=== PATIENT | female | born 1970 | race Caucasian/White ===

== ENCOUNTER 2021-03-29 12:08 | Emergency (ER) | payer BC, SELFPAY ==
--- NOTE | ~2021-03-29 | CT_ITS ---
EXAMINATION: CT brain wo con EXAM DATE: 03/29/2021 12:42 INDICATION: Head injury., Tree fell on head with laceration. TECHNIQUE: Spiral CT of the head was performed without contrast. Axial, coronal and sagittal images were reviewed. The dose-length product (DLP) for this examination was 529.67 mGy-cm. The exposure w as tailored according to patient size, and iterative reconstruction (ASIR) was used as additional dos e reduction technique. There is no prior study for comparison. FINDINGS: There is no acute intraparenchymal hemorrhage. No evidence of intraparenchymal brain mass lesion. No evidence of acute infarction. There is no mass effect or midline shift. The ventricles are normal in size. There are no extra-axial collections. There are no acute calvarial fractures. T he orbits are unremarkable. Left vertex scalp laceration and contusion. The visualized sinuses and m astoid air cells are well aerated. IMPRESSION: 1. No acute intracranial findings. 2. Left vertex scalp laceration an contusion. Reviewed, dictated and finalized at location B. 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
--- NOTE | ~2021-03-29 | XR_ITS ---
EXAMINATION: XR femur LT min 2V EXAM DATE: 03/29/2021 12:55 INDICATION: Tree Fell On Pt Today, Left Lat Mid Thigh Pain . TECHNIQUE: Left femur frontal and lateral projections of the proximal aspect, frontal and lateral pro jections of the lower aspect for review. There is no prior study for comparison. FINDINGS: Mottled appearance to the soft tissue inferolateral to the left greater trochanter, could be soft tissue hematoma. There are no acute fractures identified. There is moderate hip and knee blanquita stefany osteoarthritis. No radiopaque foreign bodies identified. IMPRESSION: 1. No left femur fracture. 2. Probable soft tissue hematoma. Reviewed, dictated and finalized at location B. 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
--- NOTE | ~2021-03-29 | CT_ITS ---
EXAMINATION: CT cervical spine wo con EXAM DATE: 03/29/2021 12:42 INDICATION: Head Injury Head Vs Falling Tree,Lac On Top Of Head. TECHNIQUE: Spiral CT of the cervical spine was performed without contrast. Axial images were reviewe d. Coronal and sagittal reformatted images cervical spine were also reviewed. The dose-length produc t (DLP) for this examination was 526.80 mGy-cm. The exposure was tailored according to patient size (auto mA exposure control), and iterative reconstruction (ASIR) was used as additional dose reduction technique. There is no prior study for comparison. FINDINGS: There is no evidence of acute cervical fracture. The odontoid process is intact. Pre-dens space is normal. Prevertebral soft tissue is normal. There are no soft tissue abnormalities identi fied. There is no disc space widening or traumatic vertebral body subluxation suspected. Mild to mo derate cervical spondylosis. A detailed level by level evaluation of spondylosis can be added as add endum if requested. IMPRESSION: No acute cervical fracture. Reviewed, dictated and finalized at location B. E RUNNER IMPRESSION: No acute cervical fracture.
--- NOTE | ~2021-03-29 | XR_ITS ---
EXAMINATION: XR hand LT min 3V EXAM DATE: 03/29/2021 12:56 INDICATION: Tree Fell On Pt, Swelling And Bruising To 3rd And 4th MCP. TECHNIQUE: Left hand frontal, lateral and oblique projections obtained and reviewed. There is no blanquita or study for comparison. FINDINGS: Left metacarpal bones are unremarkable. There are no acute fractures or dislocations ident ified. There is no subcutaneous gas. There is soft tissue swelling over the wrist and metacarpal hea ds. There are no radiopaque foreign bodies. IMPRESSION: 1. XR hand LT min 3V exam without acute osseous findings. 2. Soft tissue swelling. Reviewed, dictated and finalized at location B. 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
[2021-03-29 12:08] VITALS: BP 158/95; PULSE 107; RESP 16; TEMP 36.6; O2SAT 96
--- NOTE | 2021-03-29 12:14 | ED.HEATRA ---
HPI - Head Injury General Chief complaint: Head Injury Stated complaint: tree fell on her Time Seen by Provider: 03/29/21 12:14 Source: patient Mode of arrival: ambulatory Limitations: no limitations History of Present Illness HPI Narrative: 50-year-old female presented to the ER after a tree limb fell on --left parieto-occipital region-- she sustained an 8.5 cm full-thickness scalp laceration with profuse bleeding -- abrasions of both hands over the dorsal MP joints and left wrist -- left thigh pain and swelling no loss of consciousness. No headache. No nausea or vomiting. No focal deficits. MD Complaint: head injury and head pain Onset (ago): hour(s) ( 1 hour ago) Arrival Conditions: other ( C-spine immobilization initiated in the ER) Mechanism of Injury: other ( blunt trauma from a falling tree limb) Place: work Loss of Consciousness: no Location of injury: parietal and occipital Severity: moderate Severity scale (1-10): 4 Quality: dull Radiation: none Other Injuries: upper extremity ( multiple abrasions on both hands and left wrist) Associated symptoms: denies other symptoms Related Data Allergies Allergy/AdvReac Type Severity Reaction Status Date / Time No Known Allergies Allergy Verified 03/29/21 12:15 Review of Systems Review of Systems: All systems reviewed & are unremarkable except as noted in HPI and below Constitutional: Constitutional: Reports as per HPI and Reports no additional constitutional complaints Eyes: Eyes: Reports as per HPI and Reports no additional eye complaints ENT: Reports system reviewed and no additional complaints, except as documented Cardiovascular: Cardiovascular: Reports as per HPI and Reports no additional cardiovascular complaints Comments: patient was hypertensive the blood pressure 158/95 Respiratory: Respiratory: Reports as per HPI and Reports no additional respiratory complaints Gastrointestinal: Gastrointestinal: Reports as per HPI and Reports no additional gastrointestinal complaints Genitourinary: Genitourinary: Reports no additional female genitourinary complaints ( she is going through menopause.) Musculoskeletal: Musculoskeletal: Reports no additional musculoskeletal complaints Comments: Left thigh pain and swelling Integumentary/Breasts: Skin/Breast: Reports system reviewed and no additional complaints, except as docu Comments: 8.5 scalp laceration with multiple abrasions over both hands and left wrist left eye swelling. Neurologic: Reports system reviewed and no additional complaints, except as documented Psychiatric: Psychiatric: Reports no additional psychiatric complaints Endocrine: Endocrine: Reports no additional endocrine complaints Hematologic/Lymphatic: Hematologic/Lymphatic: Reports no additional hematologic/lymphatic complaints Allergic/Immunologic: Allergic/Immunologic: Reports no additional allergic/immunologic complaints Exam Const: General: cooperative, healthy appearing and comfortable HENMT: Head: normal to inspection and other ( 8.5 left scalp laceration) Ears: hearing grossly normal bilaterally and mastoids normal General nose exam: Normal external nose present and Normal nares present Face and sinus: normal facial exam, sinuses nontender and face symmetric Mouth: Yes Normal oral and palatal mucosa present, Yes lip normal and Yes tongue normal Teeth and gingiva: dentition normal Throat: posterior oropharynx normal Eyes: General: appearance normal, both eyes and all related structures Eyelids: eyelids normal Conjunctivae: conjunctivae normal Sclera: sclerae normal Cornea: corneas normal Pupils: Equal, round and reactive pupils present EOM: EOMs intact bilaterally Neck: Neck: normal visual inspection and other ( C-collar in place.) Thyroid: thyroid normal Lymphatic: no lymphadenopathy noted Chest: Chest palpation & inspection: normal inspection of the chest and normal palpation of entire chest wall Resp: Effort & Inspec
--- NOTE | 2021-03-29 13:24 | PC.NURSE ---
RN assisted ERP with scalp laceration closure. Pt tolerated well. Wound was cleansed with wound cleanser. Pt tolerated well. ERP stapled pt. Afterwards RN continue to cleanse area. Pt now resting in sitting position. Complaining of some dizziness. C-collar removed per ERP request with negative CT scan. Pts abrasions to hands cleansed with wound cleanser. Pt icing left hand. Hematoma noted to left thigh with minor abrasions noted.
[2021-03-29 13:27] VITALS: BP 167/90; PULSE 97; RESP 16; O2SAT 96
[2021-03-29 13:34] VITALS: BP 117/89
[2021-03-29 13:46] VITALS: BP 141/97; PULSE 96; RESP 18; O2SAT 97
== END 2021-03-29 14:00 | disposition home or self-care (01) ==
PROVIDERS: Emergency Provider Internal Medicine Critical Care Medicine; PCP Internal Medicine
DX: S01.01XA Laceration without foreign body of scalp, initial encounter (principal); T07.XXXA Unspecified multiple injuries, initial encounter; M79.652 Pain in left thigh; W22.8XXA Striking against or struck by other objects, initial encounter
CPT/HCPCS: 12004; 70450; 72125; 73130; 73552; 99283; 99284; L0150